=== PATIENT | male | born 1945 | race Caucasian/White ===

== ENCOUNTER → 2020-12-23 14:27 | Outpatient (CLI) | payer MEDICARE, SELFPAY ==
--- NOTE | 2020-12-23 14:28 | DI.CT.S_ITS ---
PROCEDURE: CT CHEST WO CON INDICATIONS: chronic shortness of breath, dyspnea on exertion. Normal CXR TECHNIQUE: Noncontrast 5 mm thick sections acquired from the pulmonary apices to the posterior costophrenic angles. 1 mm lung window, 5 mm thick coronal and sagittal and 7 mm axial MIP reformats were then acquired. For radiation dose reduction, the following was used: automated exposure control, adjustment of mA and/or kV according to patient size. COMPARISON: None. FINDINGS: Image quality: Excellent. Lungs and pleura: No acute air space opacities. No pleural effusions or pneumothorax. Central and peripheral airways are patent and normal in caliber. Mediastinum: Heart size is normal. The coronary arteries have atherosclerotic calcifications. No pericardial effusion. No mediastinal adenopathy by size criteria. Thoracic aorta and central pulmonary arteries are normal in size. There are diffuse atherosclerotic changes of the aortic arch. Esophagus is normal in caliber. There is a small hiatal hernia. Bones and chest wall: No suspicious bony lesions. No vertebral body compression fractures. No axillary or supraclavicular adenopathy by size criteria. Thyroid gland is normal. Left chest wall pacer is seen. Abdomen: Visualized upper abdominal solid organs and bowel loops appear normal in the absence of contrast. IMPRESSION: 1. No acute abnormality of the chest. 2. Moderate-sized hiatal hernia. 3. Coronary artery disease. Dictated by: Jason Lerma M.D. on 12/23/2020 at 15:33 Approved by: Jason Lemra M.D. on 12/23/2020 at 15:38
== END ==
PROVIDERS: PCP Family Medicine; Referring Provider Family Medicine; Visit Provider Family Medicine
DX: R06.00 Dyspnea, unspecified (principal); R06.02 Shortness of breath; K44.9 Diaphragmatic hernia without obstruction or gangrene; I25.10 Atherosclerotic heart disease of native coronary artery without angina pectoris
CPT/HCPCS: 71250

== ENCOUNTER → 2021-03-29 12:39 | Outpatient (CLI) | payer MEDICARE, SELFPAY ==
--- NOTE | 2021-03-29 12:42 | DI.RAD.S_ITS ---
PROCEDURE: XR LUMBAR SPINE MIN 4V INDICATIONS: BACK PAIN TECHNIQUE: 5 views of the lumbar spine were acquired, including bilateral oblique views. COMPARISON: None. FINDINGS: Bones: Postsurgical changes compatible with L2-L5 PLIF. Orthopedic hardware is in expected position. Orthopedic hardware is intact. Postsurgical changes compatible with L4 and L5 laminectomies. 5 nonrib-bearing vertebrae are present. There is normal bony alignment. Convex right thoracolumbar spine scoliosis. No vertebral body compression fractures. No suspicious bony lesions. Severe L1-L2 and L5-S1 degenerative disc changes. Soft tissues: Overlying bowel gas pattern is normal. Atherosclerotic calcifications noted. Oblique images: No pars defects. IMPRESSION: 1. Postsurgical changes. 2. Severe L1-L2 and L5-S1 degenerative disc disease. 3. No fracture. No acute osseous lesion. If symptoms and/or clinical suspicion for pathology persists, evaluation with MRI should be considered for further assessment. Dictated by: Lea Garvin MD, PhD on 03/29/2021 at 14:43 Approved by: Lea Garvin MD, PhD on 03/29/2021 at 14:44
== END ==
PROVIDERS: PCP Family Medicine; Referring Provider Physical Medicine & Rehabilitation; Visit Provider Physical Medicine & Rehabilitation
DX: M51.36 Other intervertebral disc degeneration, lumbar region (principal); M51.37 Other intervertebral disc degeneration, lumbosacral region; M54.9 Dorsalgia, unspecified; M48.061 Spinal stenosis, lumbar region without neurogenic claudication; M41.25 Other idiopathic scoliosis, thoracolumbar region; G47.30 Sleep apnea, unspecified; I48.0 Paroxysmal atrial fibrillation; Z98.890 Other specified postprocedural states
CPT/HCPCS: 72110; 99214

== ENCOUNTER → 2021-06-06 10:43 | Outpatient (CLI) | payer MEDICARE, SELFPAY ==
[2021-06-06 12:08] LABS: COVID19 -Nasal RAPID Negative (Negative)
== END ==
PROVIDERS: PCP Family Medicine; Visit Provider Physical Medicine & Rehabilitation
DX: Z20.822 Contact with and (suspected) exposure to COVID-19 (principal)
CPT/HCPCS: 87635; C9803

== ENCOUNTER 2021-06-08 11:34 | Outpatient (CLI) | payer MEDICARE, SELFPAY ==
[2021-06-08] VITALS (8 sets, daily range): BP systolic 122–161; BP diastolic 78–102; PULSE 60–84; RESP 15–20; TEMP 36.3; O2SAT 92–96
--- NOTE | 2021-06-08 11:38 | DI.RAD.S_ITS ---
PROCEDURE: PAIN L INTERLAMINAR/CAUDAL INJ INDICATIONS: Foraminal Stenosis COMPARISON: [facility]erg[facility], CR, XR LUMBAR SPINE MIN 4V, 03/29/2021, 12:32. FINDINGS: A caudally placed catheter is seen within the sacral canal. The position of the tip of the catheter was confirmed with injection of a small amount of iodinated contrast. IMPRESSION: Intraprocedural examination within normal limits. Dictated by: Lan Perez M.D. on 06/08/2021 at 13:21 Approved by: Lan Perez M.D. on 06/08/2021 at 13:22
[2021-06-08] MEDS: MIDAZOLAM 2 MG/2 ML VIAL IV (13:51)
[2021-06-08] MEDS: BUPIVACAINE 0.25% (PF) VIAL 2 ML INJ (13:52)
[2021-06-08] MEDS: DEXAMETHASONE 10 MG/ML VIAL 20 MG INJ (13:52)
[2021-06-08] MEDS: BETAMETHASONE 30 MG/5 ML MDV 12 MG INJ (13:52)
[2021-06-08] MEDS: IOPAMIDOL 15 ML VIAL 3 ML INJ (13:53)
--- NOTE | 2021-06-08 13:59 | PM.PROC.IR.1 ---
Date/Time/Diagnoses Date of procedure: 06/08/21 Time of procedure: 13:59 Pre-procedure diagnosis: 1. MULTILEVEL SPINAL STENOSIS 2. POST FUSION SYNDROME Post-procedure diagnosis: same Procedure Notes Procedure: 1. FLUOROSCOPICALLY GUIDED CONTRAST CONTROLLED CAUDAL EPIDURAL STEROID INJECTION, Indications: Nico is referred by Dr. Cage for treatment of Multilevel Stenosis Physician: Magdiel Valdivia Total Fluoroscopy time (seconds): 15 Total sedation minutes: 13 Complications: none Procedure in detail & Post-procedure care: FINDINGS Multilevel Stenosis S/p Lami/Fusion Syndrome DESCRIPTION OF PROCEDURE Fluoroscopically guided, contrast controlled caudal epidural steroid injection with Conscious Sedation Following review of allergy and review of potential side effects and complications, including but not necessarily limited to infection, allergic reaction, local tissue breakdown, temporary or permanent nerve injury, stroke, paralysis, and possible , the patient indicated that they understood and agreed to proceed. An informed consent document was signed by the patient, witnessed by a nurse, and placed in the patient's chart. Additionally, other treatment options including medications, modalities, and physical therapy were reviewed with the patient. After review of previous anaesthesic history and IV conscious sedation the patient was deemed safe to proceed with today?s procedure with IV conscious sedation as ASA class II designation. Safety time-out was performed to confirm patient ID, procedure to be performed and site of procedure. IV sedation was accomplished with a combination of 2mg of Versed administered by the RN after DO order, titrated to patient comfort during the course of the procedure while the patient remained responsive to all verbal commands In the prone position, following sterile prep and drape of the lumbar region, the sacral hiatus was identified fluoroscopically. The skin was anesthetized via a 25-gauge, 1.5-inch needle with approximately 2cc of 1% lidocaine solution. At this point, a 25-gauge, 3inch needle was atraumatically introduced and advanced under fluoroscopic guidance to the corresponding sacral hiatus and entering the sacral canal. Following negative aspiration, injection of approximately 0.3cc of Isovue 300 confirmed interarticular placement without vascular uptake. Radiological data, including multiple fluoroscopic views of the lumbosacral spine, reveal a spinal needle in the sacral canal through the sacral hiatus. Subsequent views show flow of contrast material superiorly and inferiorly in the sacral canal without vascular or intrathecal uptake. At this point, a total of 6cc including 2cc or 12mg of betamethasone, 2cc or 20mg of dexamethasone and 3cc of 1% lidocaine solution was injected without complication. The patient tolerated the procedure well without signs or symptoms of complications prior to transfer to the recovery area continued monitoring without incident. The patient was then transferred to the recovery area where they were observed for an appropriate period of time after the injection. The patient reported a VAS score of 10 prior to the procedure and a post-procedure VAS of 2. POST OP INSTRUCTIONS The patient was provided a Pain Log to continue to record their response to the target-specific procedure prior to their follow-up visit with the referring physician. Additionally, specific post-injection care instructions and a contact number to our office were provided if concerns arise regarding possible complications associated with the procedure are suspected.
== END 2021-06-08 14:20 | disposition home or self-care (01) ==
PROVIDERS: PCP Family Medicine; Referring Provider Physical Medicine & Rehabilitation; Visit Provider Physical Medicine & Rehabilitation
DX: M48.061 Spinal stenosis, lumbar region without neurogenic claudication (principal); M96.1 Postlaminectomy syndrome, not elsewhere classified; Z98.1 Arthrodesis status
CPT/HCPCS: 62323; 99152; J0702; J1100; J2250; J3010

== ENCOUNTER → 2021-07-24 09:45 | Outpatient (CLI) | payer MEDICARE, SELFPAY ==
[2021-07-24 12:22] LABS: COVID19 -Nasal RAPID Negative (Negative)
== END ==
PROVIDERS: PCP Family Medicine; Visit Provider Physical Medicine & Rehabilitation
DX: Z20.822 Contact with and (suspected) exposure to COVID-19 (principal)
CPT/HCPCS: 87635; C9803

== ENCOUNTER 2021-07-25 14:49 | Outpatient (CLI) | payer MEDICARE, SELFPAY ==
[2021-07-25] VITALS (9 sets, daily range): BP systolic 109–134; BP diastolic 57–78; PULSE 62–83; RESP 10–20; TEMP 36.4; O2SAT 86–90
--- NOTE | 2021-07-25 15:30 | DI.RAD.S_ITS ---
PROCEDURE: PAIN L INTERLAMINAR/CAUDAL INJ INDICATIONS: SPONDYLOSIS COMPARISON: [facility], XA, PAIN L INTERLAMINAR/CAUDAL INJ, 06/08/2021, 13:47. FINDINGS: Fluoroscopic spot filming was performed to verify placement of spinal needles at the L5-S1 interlaminar space level(s), as labeled on the films. Appropriate location(s) of the needle tip(s) was confirmed by injection of iodinated contrast. Partially visualized lumbosacral spine fixation hardware. IMPRESSION: Access needle tip at the L5-S1 interlaminar space for translaminar epidural steroid injection. Dictated by: Lea Garvin MD, PhD on 07/25/2021 at 16:32 Approved by: Lea Garvin MD, PhD on 07/25/2021 at 16:33
[2021-07-25] MEDS: MIDAZOLAM 2 MG/2 ML VIAL IV (15:36)
[2021-07-25] MEDS: IOPAMIDOL 15 ML VIAL 3 ML INJ (15:42)
[2021-07-25] MEDS: DEXAMETHASONE 10 MG/ML VIAL 20 MG INJ (15:43)
[2021-07-25] MEDS: BETAMETHASONE 30 MG/5 ML MDV 6 MG INJ (15:43)
[2021-07-25] MEDS: BUPIVACAINE 0.25% (PF) VIAL 2 ML INJ (15:43)
--- NOTE | 2021-07-25 15:54 | P.PCN_ITS ---
Date/Time/Diagnoses Date of procedure: 07/25/21 Time of procedure: 15:54 Pre-procedure diagnosis: 1. HNP WITH RADICULAR FEATURES, 2. MULTILEVEL CENTRAL STENOSIS, Post-procedure diagnosis: same Procedure Notes Procedure: 1. FLUOROSCOPICALLY GUIDED CONTRAST CONTROLLED INTERLAMINAR EPIDURAL STEROID INJECTION - L5/S1 Indications: Alden is referred by Dr. Cage for treatment of Bilateral Foraminal Stenosis L>R LE symptoms. Physician: Magdiel Valdivia Total Fluoroscopy time (seconds): 7 Total sedation minutes: 11 Complications: none Procedure in detail & Post-procedure care: FINDINGS Multilevel Central Spinal Stenosis with Nerve Root Compression DESCRIPTION OF PROCEDURE Fluoroscopically guided, contrast-controlled L5/S1 translaminar epidural steroid injection. Following review of allergy and review of potential side effects and complications, including, but not necessarily limited to, infection, allergic reaction, local tissue breakdown, temporary as well as permanent nerve injury, paralysis, stroke and possible , the patient indicated that the patient understood and agreed to proceed. An informed consent document was signed by the patient, witnessed by a nurse, and placed in the patient's chart. Additionally, other treatment options including modalities, medications, and physical therapy were reviewed with the patient. After review of previous anaesthesic history and IV conscious sedation the patient was deemed safe to proceed with today?s procedure with IV conscious sedation as ASA class II designation. Safety time-out was performed to confirm p atient ID, procedure to be performed and site of procedure. IV sedation was accomplished with a combination of 2mg of Versed administered by the RN after DO order, titrated to patient comfort during the course of the procedure while the patient remained responsive to all verbal commands. In the prone position, following sterile prep and drape of the lumbar region, the L5/S1 translaminar space was identified fluoroscopically. The skin was anesthetized via a 25-gauge, 1.5-inch needle with 1% lidocaine solution. At this point, a 22-gauge short bevel spinal needle was atraumatically introduced and advanced under fluoroscopic guidance into the region of the L5/S1 translaminar space. Depth was confirmed on lateral view. Radiological data, including multiple fluoroscopic views of the lumbar spine, reveal a spinal needle at the L5/S1 translaminar space. Lateral views then show placement of the needle in the epidural space. Subsequent views show contrast material flowing superiorly and inferiorly in the epidural space. No vascular or intrathecal uptake is observed. At this point, using loss of resistance technique with saline and air, the epidural space was entered. This was confirmed following negative aspiration with injection of approximately 1.5cc of Isovue 200, showing excellent epidural flow without vascular or intrathecal uptake. At this point, 1 cc of 1% lidocaine solution combined with 3cc or 20mg of dexamethasone and 6mg of betamethasone was injected without incident. The patent tolerated the procedure without signs of symptoms of complications prior to transfer to the recovery area for further monitoring. The patient was then transferred to the recovery area where they were observed for an appropriate period of time after the injection. The patient reported a VAS score of 6 prior to the procedure and a post-procedure VAS of 0. POST OP INSTRUCTIONS The patient was provided a Pain Log to continue to record their response to the target-specific procedure prior to follow-up visit with their referring physician. Additionally, specific post-injection care instructions and a contact number to our office were provided if concerns arise regarding possible complications associated with the procedure are suspected.
--- NOTE | 2021-07-25 17:25 | PC.NURSE ---
1610 - had patient stand to get in to the wheelchair and discovered that he has bilateral leg weakness and his butt is asleep. patient sat back down. will reassess. 1630 - had patient stand again. legs still very weak. had patient sit back down. when he sat back down he noticed that he had lost control of his bladder. Iris and Zaida changed patient's soiled underwear and pants into Scrub pants and absorbant underwear. Dr. Valdivia notified. 1645 - had patient stand again. still has bilateral leg weakness. 1650 - Dr. Valdivia arrived and spoke with/assessed patient. Patient's , Malachi, is in the recovery room and Dr. Valdivia also spoke with her about what to expect. He stated patient is ok to be discharged when his bilateral leg weakness improves and is able to take steps forward and back without assistance. 1705 - had patient stand again. leg weakness improving. able to take steps in place, but still too unsteady to discharge 1710 - Patient stood in place to a step forward and back, but still too unsteady to discharge. 1735 - Patient stood up. leg weakness improved enough to go home. able to take steps forward and back.
== END 2021-07-25 17:39 | disposition home or self-care (01) ==
PROVIDERS: PCP Family Medicine; Referring Provider Physical Medicine & Rehabilitation; Visit Provider Physical Medicine & Rehabilitation
DX: M51.17 Intervertebral disc disorders with radiculopathy, lumbosacral region (principal); M48.07 Spinal stenosis, lumbosacral region
CPT/HCPCS: 62323; 99152; J0702; J1100; J2250

== ENCOUNTER 2022-04-24 13:03 | Outpatient (CLI) | payer MEDICARE, SELFPAY ==
[2022-04-24] VITALS (9 sets, daily range): BP systolic 132–153; BP diastolic 61–100; PULSE 60–83; RESP 14–20; TEMP 36.6; O2SAT 92–96
--- NOTE | 2022-04-24 13:07 | DI.RAD.S_ITS ---
PROCEDURE: PAIN L/S TRANSFORAMINAL INJECT INDICATIONS: SPONDYLOSIS COMPARISON: Outside Facility, RG, MRI L-SPINE W/O CONTRAST, 02/16/2022, 9:06. [facility], XA, PAIN L INTERLAMINAR/CAUDAL INJ, 07/25/2021, 15:41. [facility], CR, XR LUMBAR SPINE MIN 4V, 03/29/2021, 12:32. FINDINGS: Fluoroscopic spot filming was performed to verify placement of a spinal needle at the L5-S1 level, as labeled on the films. Appropriate location of the needle tip was confirmed by injection of iodinated contrast. IMPRESSION: No significant intraprocedural abnormality. Dictated by: Lan Perez M.D. on 04/24/2022 at 14:23 Approved by: Lan Perez M.D. on 04/24/2022 at 14:24
[2022-04-24] MEDS: MIDAZOLAM 2 MG/2 ML VIAL IV (14:07)
[2022-04-24] MEDS: DEXAMETHASONE 10 MG/ML VIAL 20 MG INJ (14:13)
[2022-04-24] MEDS: IOPAMIDOL 15 ML VIAL 3 ML INJ (14:13)
[2022-04-24] MEDS: BUPIVACAINE 0.25% (PF) VIAL 2 ML SUBCUT (14:14)
[2022-04-24] MEDS: BETAMETHASONE 30 MG/5 ML MDV 6 MG INJ (14:14)
--- NOTE | 2022-04-24 14:27 | P.PCN_ITS ---
Date/Time/Diagnoses Date of procedure: 04/24/22 Time of procedure: 14:27 Pre-procedure diagnosis: FORAMINAL STENOSIS WITH LE SYMPTOMS Post-procedure diagnosis: same Procedure Notes Procedure: 1. FLUOROSCOPICALLY GUIDED CONTRAST CONTROLLED TRANSFORAMINAL EPIDURAL STEROID INJECTION - RIGHT L5/S1 TFESI Indications: Nico is referred by Dr. Brink and Niles for treatment of Foraminal Stenosis with Right LE Symptoms Physician: Magdiel Valdivia Total Fluoroscopy time (seconds): 13 Total sedation minutes: 13 Complications: none Procedure in detail & Post-procedure care: FINDINGS Foraminal Nerve Root Compression secondary to disc disease and facet hypertrophy DESCRIPTION OF PROCEDURE Following review of allergy and review of potential side effects and complications, including, but not necessarily limited to, infection, allergic reaction, local tissue breakdown, stroke, temporary or permanent nerve injury, paralysis, and possible , the patient indicated that the patient understood and agreed to proceed. An informed consent document was signed by the patient, witnessed by a nurse, and placed in the patient's chart. Additionally, other treatment options including medications, modalities, and physical therapy were reviewed with the patient. After review of previous anaesthesic history and IV conscious sedation the patient was deemed safe to proceed with today?s procedure with IV conscious sedation as ASA class II designation. Safety time-out was performed to confirm patient ID, procedure to be performed and site of procedure. IV sedation was accomplished with a combination of 2mg of Versed was administered by the RN after DO order, titrated to patient comfort during the course of the procedure while the patient remained responsive to all verbal commands In the prone position following sterile prep and drape of the lumbar region, the right L5/S1 posterior neuroforamen was identified fluoroscopically. The skin was anesthetized via a 25-gauge 1.5-inch needle with 1% lidocaine solution. At this point, a 25-gauge 3.5-inch spinal needle was atraumatically introduced and advanced under fluoroscopic guidance through the posterior right L5/S1 neuroforamen to approximately the anterior aspect of the canal. Depth was confirmed on lateral view. Following negative aspiration, injection of approximately 1.5cc of Isovue 200 under live fluoroscopy in the AP view confirmed excellent flow along the nerve root, into the epidural space without vascular or intrathecal uptake observed Radiological data, including multiple fluoroscopic views of the lumbosacral spine, reveal a spinal needle at the right L5/S1 posterior neuroforamen. Subsequent views show flow of contrast material flowing superiorly and inferiorly along the nerve root confirming epidural flow. Subsequently, a test dose of 1.5 cc of 1% lidocaine solution was administered and patient was observed for two minutes for signs or symptoms of complications, including abdominal pain, shortness of breath, bilateral upper or lower extremity weakness, nausea and vomiting, prior to steroid injection. At this point, a total of 3cc or 20mg of dexamethasone and 6mg of betamethasone was injected without incident. The procedure tolerated the procedure well without signs or symptoms of complications prior to transfer to the recovery area continued monitoring without incident. The patient was then transferred to the recovery area where they were observed for an appropriate time after the injection. The patient reported a VAS score of 7 prior to the procedure and a post- procedure VAS of 0. POST OP INSTRUCTIONS The patient was provided a Pain Log to continue to record their response to the target-specific procedure prior to follow-up visit with their referring physician. Additionally, specific post-injection care instructions and a contact number to our office were provided if concerns arise regarding possible complications associated with the procedure are suspected.
== END 2022-04-24 14:40 | disposition home or self-care (01) ==
LOC: RAD 13:05
PROVIDERS: PCP Family Medicine; Referring Provider Physical Medicine & Rehabilitation; Visit Provider Physical Medicine & Rehabilitation
DX: M48.07 Spinal stenosis, lumbosacral region (principal); M51.17 Intervertebral disc disorders with radiculopathy, lumbosacral region
CPT/HCPCS: 64483; 99152; J0702; J1100; J2250; J3490

== ENCOUNTER 2023-08-01 10:09 | Day surgery (SDC) | payer MEDICARE, SELFPAY ==
[2023-08-01] VITALS (7 sets, daily range): BP systolic 86–144; BP diastolic 61–93; PULSE 70–87; RESP 12–20; TEMP 36.3–36.6; O2SAT 84–91
--- NOTE | 2023-08-01 | PATH_ITS ---
[facility] Accession Number: [id number] No. of containers..02 Tissue . 01 Material submitted: . PART A: colon - CECAL POLYP PART B: colon - DESCENDING POLYP . 01 Diagnosis: Part A: CECAL POLYP: Tubular adenoma. . Part B: DESCENDING POLYP: Tubular adenoma. [facility] 08/05/2023 1143 Local . 01 Electronically signed: . Lito Newsome MD, Pathologist NPI- [id number] . 01 Gross description: . A. Received in formalin, labeled with the patient's name, , and cecal polyp, consists of a single fragment of pink-monson soft tissue measuring 0.4 cm in greatest dimension. The tissue is entirely submitted in cassette A1. . B. Received in formalin, labeled with the patient's name, , and descending polyp, consists of two fragments of monson-brown soft tissue measuring 1.2 x 0.5 x 0.1 cm and 1.3 x 0.4 x 0.2 cm. The tissue fragments are inked blue and black, respectively. Each fragment is bisected and entirely submitted in cassette B1. ([id number]) /MRV 08/05/2023 1143 Local . 01 Pathologist provided ICD-10: D12.0, D12.4 . 01 CPT . 262642, 243187 Specimen Comment: A courtesy copy of this report has been sent to [phone] Performed at: [facility] [address] [place] [address] [id number] MD Lito Newsome MD Phone: [phone]
--- NOTE | 2023-08-01 11:08 | PM.HP.1 ---
History of Present Illness History of Present Illness Date Patient Seen: 08/01/23 Time Patient Seen: 11:08 Chief complaint: SDC Narrative: Alden is a 78-year-old man who is here for colonoscopy. His last colonoscopy was over 10 years ago. [facility] Medical History (Updated 08/01/23 @ 11:09 by Allan Díaz MD) Allergic rhinitis Imbalance Neuroforaminal stenosis of lumbar spine Spinal stenosis of lumbar region Lumbar spondylosis Hyperlipidemia Wears glasses Sleep apnea Allergies Scoliosis Lumbar pain Chronic back pain Tinnitus Hearing loss Atrial fibrillation Surgical History Anesthesia History of back surgery History of elbow surgery History of knee surgery Pacemaker Family History Father Alcoholism Mother Stroke Brother History of AIDS Social History Smoking Status: Former smoker Tobacco: How many years used: 3 quit status: has quit before second hand exposure: No alcohol intake: current substance use type: does not use Meds Home Medications and Allergies Home Medications Medication Instructions Recorded Confirmed Type apixaban 5 mg tablet (Eliquis) 5 mg PO BID 12/15/20 08/01/23 History flecainide 100 mg tablet 100 mg PO Q12H 12/15/20 08/01/23 History metoprolol succinate 25 mg 12.5 tab PO DAILY 12/15/20 08/01/23 History tablet,extended release 24 hr cetirizine 10 mg tablet (All Day 10 mg PO DAILY PRN 05/31/21 07/30/23 History Allergy (cetirizine)) magnesium citrate (Citrate of 150 ml PO DAILY 05/31/21 07/30/23 History Magnesia oral) acetaminophen 500 mg tablet 1,500 mg PO BID PRN Pain, Mild 05/28/22 08/01/23 History (Tylenol Extra Strength) atorvastatin 20 mg tablet 20 mg PO BEDTIME #90 tabs 04/11/23 08/01/23 Rx sodium,potassium,mag sulfates 17.5 See Rx Instructions PO .COMPLEX 07/17/23 07/30/23 Rx gram-3.13 gram-1.6 gram oral soln #354 mL (Suprep Bowel Prep Kit) omeprazole 20 mg capsule,delayed See Rx Instructions .Route 07/31/23 08/01/23 Rx release .COMPLEX #90 caps Allergies Allergy/AdvReac Type Severity Reaction Status Date / Time No Known Drug Allergies Allergy Verified 07/30/23 09:12 Exam Vital Signs (past 8 hours): - 08/01/23 10:57 Temperature 97.8 F Pulse Rate 87 Respiratory Rate 20 Blood Pressure 144/93 H Pulse Oximetry 85 L Oxygen Delivery Method Room Air Oxygen Delivery Method Room Air Const General: No acute distress Resp Effort & Inspection: normal respiratory effort Assessment & Plan Assessment and plan (1) Colon cancer screening: Status: Acute Plan We reviewed the risks and benefits of colonoscopy for colon cancer screening and he would like to proceed.
--- NOTE | 2023-08-01 11:43 | PM.OP.COLON ---
Operative Date/Time/Diagnoses Date of procedure: 08/01/23 Time of procedure: 11:44 Pre-op diagnosis: Colon cancer screening Post-op diagnosis: same Procedure & Clinicians Study performed: Colonoscopy Same procedure as scheduled: Yes Surgeon: Allan Díaz Procedure Notes Procedure in detail: Surgeon: Allan Díaz MD Anesthesia: Shoaib Ward MD Procedure: The patient was brought to the endoscopy suite, placed in left lateral decubitus position. The patient was connected to monitoring devices. A time-out was performed. Sedation was administered. Once the patient was adequately sedated, a digital rectal exam was performed and was normal. The scope was then inserted and advanced to the cecum where the appendiceal orifice was identified and photographed. The scope was then slowly withdrawn over greater than 6 minutes. The mucosa was thoroughly inspected. There was a 5 mm polyp in the cecum removed cold forceps. Was a 7 mm polyp in the descending colon removed cold snare. The scope was retroflexed in the rectum. Internal hemorrhoids were noted The scope was straightened and removed. The patient was awakened and brought to recovery. Scope withdrawal time: 11 minutes Sedation time: 27 minutes EBL: 5 mL Findings: 5 mm cecal polyp and 7 mm descending polyp Post-procedure Disposition: PACU
[2023-08-01] MEDS: ALBUTEROL 2.5 MG/3 ML NEB (ADULT) INH (11:54)
== END 2023-08-01 12:23 | disposition home or self-care (01) ==
PROVIDERS: PCP Family Medicine; Referring Provider Surgery; Visit Provider Surgery
PROC: 0DJD8ZZ Inspection of Lower Intestinal Tract, Via Natural or Artificial Opening Endoscopic (ICD-10-PCS; CPT 45378; principal; 2023-08-01 11:30)
DX: Z12.11 Encounter for screening for malignant neoplasm of colon (principal); D12.0 Benign neoplasm of cecum; D12.4 Benign neoplasm of descending colon
CPT/HCPCS: 45385; 45380; J2704; J7613

== ENCOUNTER → 2023-08-15 09:59 | Outpatient (CLI) | payer MEDICARE, SELFPAY | LOC: RESP 09:59 | PROVIDERS: PCP Family Medicine; Referring Provider Family Medicine; Visit Provider Family Medicine | DX: R06.09 Other forms of dyspnea (principal); R79.81 Abnormal blood-gas level | CPT/HCPCS: 94060; 94726; 94729 ==

== ENCOUNTER → 2024-07-31 13:59 | Outpatient (CLI) | payer MEDICARE, SELFPAY ==
[2024-07-31 15:53] LABS: Add Manual Diff / Slide Review NO; Basophils Absolute Auto 100 /uL (0-100); Basophils Percent Auto 1.5 % (0-2); Eosinophils Absolute Auto 100 /uL (0-450); Hematocrit 42.9 % (41-53); Hemoglobin 14.6 g/dL (13.5-17.5); Lymphocytes Absolute Auto 1300 /uL (1100-4500); Lymphocytes Percent Auto 23.4 % (25-40); Mean Corpuscular Hemoglobin 32.6 PG (26-34); Mean Corpuscular Volume 95.8 fL (80-100); Monocytes Absolute Auto 500 /uL (0-900); Monocytes Percent Auto 8.5 % (3-14); Neutrophils Absolute Auto 3700 /uL (1500-7000); Neutrophils Percent Auto 64.6 % (50-75); Platelet Count 184 X10^3/uL (150-400); Red Blood Cell Count 4.48 X10^6/uL (4.5-5.9); Red Cell Distribution Width 13.1 % (11.6-14.8); White Blood Cell Count 5.7 X10^3/uL (4.5-11.0)
[2024-07-31 16:34] LABS: Alanine Aminotransferase 23 IU/L (<50); Albumin 4.5 g/dL (3.5-5.0); Alkaline Phosphatase 86 U/L (38-126); Aspartate Aminotransferase 30 IU/L (17-59); BUN Creatinine Ratio 19.4 (6-22); Blood Urea Nitrogen 21 mg/dL (9-20); C-Reactive Protein Quant < 0.5 mg/dL (<1.0); Calcium 9.4 mg/dL (8.4-10.2); Carbon Dioxide 19 mmol/L (22-32); Chloride 107 mmol/L (98-107); Estimated Glomerular Filt Rate > 60 mL/min (>60); Globulin 2.3 g/dL (1.7-4.1); Glucose 157 mg/dL (70-99); HEMOLYSIS < 15 (0-50); Sodium 138 mmol/L (137-145); Total Protein 6.8 g/dL (6.3-8.2)
[2024-07-31 16:42] LABS: Erythrocyte Sedimentation Rate 4 MM/HR (0-15)
[2024-07-31 16:56] LABS: TSH w/ Reflex to FT4 1.76 uIU/mL (0.47-4.68)
== END ==
PROVIDERS: PCP Family Medicine; Referring Provider Family Medicine; Visit Provider Family Medicine
DX: I48.91 Unspecified atrial fibrillation (principal); M47.816 Spondylosis without myelopathy or radiculopathy, lumbar region; M48.061 Spinal stenosis, lumbar region without neurogenic claudication; R26.89 Other abnormalities of gait and mobility; E78.5 Hyperlipidemia, unspecified; Z79.899 Other long term (current) drug therapy; I73.00 Raynaud's syndrome without gangrene
CPT/HCPCS: 36415; 80053; 84443; 85025; 85651; 86038; 86140

== ENCOUNTER 2025-01-20 09:22 | Outpatient (CLI) | payer MEDICARE, SELFPAY ==
[2025-01-20 09:45] VITALS: BP 147/97; PULSE 84; RESP 16; TEMP 36.8; O2SAT 92
[2025-01-20 10:06] VITALS: BP 161/95; PULSE 91; RESP 18; O2SAT 95
[2025-01-20] MEDS: LIDOCAINE 1% (PF) 5 ML 10 ML INJ (10:08)
[2025-01-20] MEDS: TRIAMCINOLONE 40 MG/ML VIAL INJ (10:09)
[2025-01-20 10:11] VITALS: BP 147/88; PULSE 74; RESP 18; O2SAT 94
[2025-01-20 10:19] VITALS: BP 157/92; PULSE 91; RESP 14; O2SAT 95
[2025-01-20 10:25] VITALS: BP 156/97; PULSE 78; RESP 15; O2SAT 95
--- NOTE | 2025-01-20 12:06 | P.PCN_ITS ---
Date/Time/Diagnoses Date of procedure: 01/20/25 Time of procedure: 10:00 Pre-procedure diagnosis: Sacroiliitis, sacroiliac joint pain Post-procedure diagnosis: same Procedure Notes Procedure: Left sacroiliac joint injection Indications: Sacroiliitis, sacroiliac joint pain Physician: Kirit Conte Total sedation minutes: 0 Complications: none Procedure in detail & Post-procedure care: Patient is here for the planned procedure today as noted. No significant change since the last office visit. For additional clinical scenario please see those office notes. Focused exam: Vital signs reviewed as charted on intake. Gen: Well developed. No acute distress. CV: RRR, no M/R/G Chest: Non-labored breathing, CTAB. Psych: Alert and well-oriented. Mood/Affect: normal. Patient suitable for the planned procedure today: Yes === The following procedure was performed today: Sacroiliac joint injection with fluoroscopic guidance (93075) Approach: Posterior, inferior pole Laterality: Left Soft tissue: [1% lidocaine 1.5 mL] Injectate: [1 mL of triamcinolone (40mg/mL) in 2 mL 1% lidocaine] Fluoroscopy Agent: Isovue 300-M 1 mL Notes: Note he is on Eliquis. Associated increased bleeding risks discussed and he would like to proceed. Instrumented fusion L2-S1. 3.5 in 22 gauge spinal needle utilized and adequate. Preprocedure pain 3/10, postprocedure pain 0/10. Procedure: Informed consent was obtained and all patient questions were answered. After discussing the risks, benefits, and alternatives to the procedure, the patient expressed understanding and wished to proceed. The patient was brought to the procedure suite and placed in the prone position, and prepped and draped in a sterile fashion. A pre-procedural pause was conducted to verify: correct patient identity, procedure to be performed and as applicable, correct side and site, correct patient position, and any special requirements. The fluoroscopic C-arm was positioned for optimal visualization of the targeted sacroiliac (SI) joint. The inferior portion of the SI joint was localized under fluoroscopic visualization and local anesthetic was utilized for soft tissue local anesthesia. A 22 gauge spinal needle was inserted into the fluoroscopical ly hyperlucent region within the SI joint. Aspiration negative. If noted above, the noted contrast agent was injected and a partial arthrogram was obtained. Multiplanar imaging was performed for confirmation and appropriate images were saved. The steroid/anesthetic solution noted above was then injected into the SI joint. The patient tolerated the procedure well and was discharged after an appropriate period of observation. If there are any complications or concerns, the patient was instructed to call us. The patient is to follow-up with the ordering provider in 2-3 weeks/as planned. This note was compiled using voice recognition software and therefore may contain typos. Please contact the author with any questions or concerns.
== END 2025-01-20 10:25 | disposition home or self-care (01) ==
LOC: RAD 09:23
PROVIDERS: PCP Family Medicine; Referring Provider Physical Medicine & Rehabilitation; Visit Provider Physical Medicine & Rehabilitation
DX: M46.1 Sacroiliitis, not elsewhere classified (principal); M53.3 Sacrococcygeal disorders, not elsewhere classified; Z79.01 Long term (current) use of anticoagulants
CPT/HCPCS: 27096